=== PATIENT | male | born 1980 | race Caucasian/White ===

== ENCOUNTER 2018-10-21 19:12 | Emergency (ER) | payer OTHER ==
[~2018-10-21] VITALS: Ht 175.3 cm; Wt 50.0 kg
[~2018-10-21 19:12] MED LIST: ARIP2 PO; LIDO700A18 TD
[2018-10-21 19:13] VITALS: BP 122/78
[2018-10-21] MEDS ORDERED: TRAZ-220 PO (19:50)
[2018-10-21] MEDS ORDERED: CHLO50 PO (19:50)
== END 2018-10-21 22:11 | disposition left against medical advice (07) ==
LOC: EMS 19:12
DX: R20.2 Paresthesia of skin (principal); F41.9 Anxiety disorder, unspecified; F32.9 Major depressive disorder, single episode, unspecified; F20.9 Schizophrenia, unspecified; G89.29 Other chronic pain; F17.210 Nicotine dependence, cigarettes, uncomplicated; Z53.21 Procedure and treatment not carried out due to patient leaving prior to being seen by health care provider

== ENCOUNTER 2020-03-26 18:05 | Inpatient (IN) | payer MEDICAID, OTHER ==
[~2020-03-26] VITALS: Ht 177.8 cm; Wt 75.0 kg
[~2020-03-26 18:05] MED LIST changes: -ARIP2 PO; +CHLO50TA41 PO; -LIDO700A18 TD; +TRAZ-257 PO
[2020-03-26] MEDS ORDERED: PERTUSS(ACELL),DIPH,TET VAC/PF 0.5 ML VIAL IM ONE (19:00)
[2020-03-26] MEDS ORDERED: BACITRACIN 0.9 GM PACKET OINTMENT TP ONE (19:00)
[2020-03-26] MEDS ORDERED: LIDOCAINE 1% 10 ML VIAL INJ ONE (19:00)
[2020-03-26] MEDS ORDERED: DiphenhydrAMINE HCL 50 MG/ML VIAL ONE (19:05)
[2020-03-26] MEDS ORDERED: LORazepam 2 MG/ML VIAL ONE (19:05)
[2020-03-26] MEDS ORDERED: HALOPERIDOL LACTATE 5 MG/ML VIAL ONE (19:05)
[2020-03-26] MEDS ORDERED: LORazepam 2 MG/ML VIAL IM ONE (19:15)
[2020-03-26] MEDS ORDERED: DiphenhydrAMINE HCL 50 MG/ML VIAL IM ONE (19:15)
[2020-03-26] MEDS ORDERED: HALOPERIDOL LACTATE 5 MG/ML VIAL IM ONE (19:15)
[2020-03-26 19:42] LABS: BASOPHILS % (AUTO) 0.7 % (0.0-2.0); EOSINOPHILS % (AUTO) 1.2 % (1.0-6.0); HEMATOCRIT 38.9 % (41-53); LYMPHOCYTES # (AUTO) 3.1 K/uL (1.0-4.8); LYMPHOCYTES % (AUTO) 48.2 % (22.0-44.0); MEAN CORPUSCULAR HEMOGLOBIN 33.5 pg (26.0-34.0); MEAN CORPUSCULAR HGB CONC 33.4 G/dL (31.0-37.0); MEAN CORPUSCULAR VOLUME 100 fL (80-100); MONOCYTES # (AUTO) 0.5 K/uL (0.1-1.0); MONOCYTES % (AUTO) 7.5 % (2.0-9.0); NEUTROPHILS # (AUTO) 2.7 K/uL (1.8-7.7); NEUTROPHILS % (AUTO) 42.4 % (40.0-70.0); PLATELET COUNT (AUTO) 194 K/uL (150-450); RED BLOOD CELL COUNT(AUTO) 3.88 MIL/uL (4.50-5.90); RED CELL DISTRIBUTION WIDTH 13.1 % (11.5-14.5)
[2020-03-26 19:53] LABS: ANION GAP 14 mmol/L (8-16); CALCIUM, TOTAL 8.8 mg/dL (8.8-10.5); CARBON DIOXIDE 23 mmol/L (22-29); CHLORIDE 107 mmol/L (98-107); CREATININE 0.71 mg/dL (0.60-1.30); GLOMERULAR FILTR. RATE CALC > 60 mL/min (>60); GLUCOSE,RANDOM 88 mg/dL (70-110); SODIUM SERUM 144 mmol/L (136-145); UREA NITROGEN, BLOOD 7 mg/dL (7-18)
[2020-03-26 19:59] LABS: ALANINE AMINOTRANSFERASE 20 U/L (12-78); ALKALINE PHOSPHATASE 85 U/L (46-116); ASPARTATE AMINOTRANSFERASE 22 U/L (15-37); BILIRUBIN,TOTAL 0.4 mg/dL (0.1-1.0); TOTAL PROTEIN, SERUM 7.3 g/dL (6.4-8.2)
[2020-03-26] MEDS ORDERED: POTASSIUM CHLORIDE 10% 40 MEQ/30 ML LIQUID UDCUP PO ONE (21:00)
[2020-03-27] MEDS ORDERED: NICOTINE 14 MG/24 HOUR PATCH TD PRN (00:15)
[2020-03-27] MEDS ORDERED: MAGNESIUM HYDROXIDE SUSPENSION 30 ML UDCUP PO PRN (00:15)
[2020-03-27] MEDS ORDERED: DOCUSATE SODIUM 100 MG CAPSULE PO PRN (00:15)
[2020-03-27] MEDS ORDERED: ALBUTEROL SULFATE HFA 90 MCG/PUFF 8 GM INHALER IH PRN (00:15)
[2020-03-27] MEDS ORDERED: MAG HYDROX/AL HYDROX/SIMETH ES 30 ML SUSPENSION UDCUP PO PRN (00:15)
[2020-03-27] MEDS ORDERED: ACETAMINOPHEN 325 MG TABLET PO PRN (00:15)
[2020-03-27] MEDS ORDERED: LOPERAMIDE HCL 2 MG CAPSULE PO PRN (00:15)
[2020-03-27] MEDS ORDERED: GuaiFENesin/D-METHORPHAN [SUGAR-FREE] 200-20MG/10 ML SYRUP UDCUP PO PRN (00:15)
[2020-03-27] MEDS ORDERED: IBUPROFEN 400 MG TABLET PO PRN (00:15)
[2020-03-27] MEDS ORDERED: CloNIDine HCL 0.1 MG TABLET PO PRN (00:15)
[2020-03-27] MEDS ORDERED: ONDANSETRON HCL 4 MG TABLET PO PRN (00:15)
[2020-03-27] MEDS ORDERED: PETROLATUM,WHITE 28 GM JELLY TP PRN (00:15)
[2020-03-27 05:44] VITALS: BP 112/70
[2020-03-27 06:19] VITALS: BP 102/55
[2020-03-27 16:35] VITALS: BP 109/72
[2020-03-27] MEDS: ChlorproMAZINE HCL 50 MG TABLET PO SCH (16:50)
[2020-03-27] MEDS: TraZODone HCL 50 MG TABLET PO SCH (20:44)
[2020-03-27 21:10] VITALS: BP 109/72
[2020-03-28 05:30] VITALS: BP 105/35
[2020-03-28 05:32] VITALS: BP 105/35
[2020-03-28 08:23] VITALS: BP 127/73
[2020-03-28] MEDS: ChlorproMAZINE HCL 50 MG TABLET PO SCH ×3 (08:24→16:42)
[2020-03-28 16:22] VITALS: BP 126/78
[2020-03-28] MEDS ORDERED: HALOPERIDOL 5 MG TABLET PO PRN (18:45)
[2020-03-28] MEDS ORDERED: ZOLPIDEM TARTRATE 10 MG TABLET PO PRN (18:45)
[2020-03-28] MEDS: LORazepam 2 MG TABLET PO PRN (20:20)
[2020-03-28] MEDS: TraZODone HCL 50 MG TABLET PO SCH (20:20)
[2020-03-29 04:23] VITALS: BP 128/60
[2020-03-29] MEDS: ChlorproMAZINE HCL 50 MG TABLET PO SCH ×3 (08:10→16:39)
[2020-03-29] MEDS ORDERED: TRAZ-252 PO (14:54)
[2020-03-29 16:00] VITALS: BP 128/78
[2020-03-29] MEDS: TraZODone HCL 50 MG TABLET PO SCH (20:50)
[2020-03-29] MEDS: LORazepam 2 MG TABLET PO PRN (20:50)
[2020-03-30 05:18] VITALS: BP 124/68
[2020-03-30 08:21] VITALS: BP 117/64
[2020-03-30] MEDS: ChlorproMAZINE HCL 50 MG TABLET PO SCH ×2 (08:49→12:30)
== END 2020-03-30 13:00 | disposition home or self-care (01) | DRG 750 ==
LOC: EMS 18:05 → B3A 21:00
PROVIDERS: ADMIT Psychiatry & Neurology Child & Adolescent Psychiatry
PROC: 0HQDXZZ Repair Right Lower Arm Skin, External Approach (ICD-10-PCS; principal; 2020-03-26)
DX: F20.0 Paranoid schizophrenia (principal); Z59.0 Homelessness; D64.9 Anemia, unspecified; E87.6 Hypokalemia; F10.10 Alcohol abuse, uncomplicated; S51.811A Laceration without foreign body of right forearm, initial encounter; F17.210 Nicotine dependence, cigarettes, uncomplicated; F19.10 Other psychoactive substance abuse, uncomplicated; F32.9 Major depressive disorder, single episode, unspecified; F41.9 Anxiety disorder, unspecified; G89.29 Other chronic pain; M54.9 Dorsalgia, unspecified; R41.82 Altered mental status, unspecified; Z79.899 Other long term (current) drug therapy; X58.XXXA Exposure to other specified factors, initial encounter; Y93.89 Activity, other specified; Y92.89 Other specified places as the place of occurrence of the external cause; Y99.8 Other external cause status
CPT/HCPCS: 90715; 99291; G0480; J1200; J1630; J2060; J3490

== ENCOUNTER → 2025-07-25 | Emergency (ER) | payer MEDICAID ==
[~2025-07-25] VITALS: Ht 175.3 cm; Wt 50.0 kg
[~2025-07-25] MED LIST changes: -CHLO50TA41 PO; +CHLO50TA71 PO; +TRAZ-252 PO; -TRAZ-257 PO
[2025-07-25 17:21] VITALS: TEMP 98.6
[2025-07-25 17:50] LABS: COVID AG,FIA SOURCE NASAL SWAB
[2025-07-25 17:56] LABS: APPEARANCE,URINE CLEAR (CLEAR); GLUCOSE, URINE (UA) NEGATIVE (NEGATIVE); LEUKOCYTE ESTERASE ,URINE NEGATIVE (NEGATIVE); NITRATE,URINE NEGATIVE (NEGATIVE); OCCULT BLOOD,URINE NEGATIVE (NEGATIVE); PH,URINE DRUG SCREEN 6.5 (5.0-8.0); SPECIFIC GRAVITIY, URINE 1.002 (1.003-1.030)
[2025-07-25 18:02] LABS: ALCOHOL, URINE DRUG SCREEN NEGATIVE (NEGATIVE); AMPHET/METH SCREEN,URINE NEGATIVE (NEGATIVE); BARBITURATE SCREEN, URINE NEGATIVE (NEGATIVE); CANNABINOID SCREEN,URINE POSITIVE (NEGATIVE); COCAINE SCREEN,URINE NEGATIVE (NEGATIVE); METHADONE SCREEN, URINE NEGATIVE (NEGATIVE)
[2025-07-25 18:03] LABS: PLATELET COUNT (AUTO) 251 K/uL (150-450); RED BLOOD CELL COUNT(AUTO) 3.89 MIL/uL (4.50-5.90); RED CELL DISTRIBUTION WIDTH 13.3 % (11.5-14.5); WHITE BLOOD COUNT (AUTO) 6.3 K/uL (4.5-11.0)
[2025-07-25 18:10] LABS: CALCIUM, TOTAL 8.7 mg/dL (8.8-10.5); CREATININE 0.56 mg/dL (0.60-1.30); GLOMERULAR FILTR. RATE CALC > 60 mL/min (>60); GLUCOSE,RANDOM 94 mg/dL (70-110); SODIUM SERUM 145 mmol/L (136-145); UREA NITROGEN, BLOOD 9 mg/dL (7-18)
[2025-07-25 18:35] LABS: SARS-COV2 (COVID) ANTIGEN,FIA Negative (Negative)
[2025-07-25 20:10] VITALS: BP 109/77; PULSE 69; RESP 15; O2SAT 99
== END | disposition still patient (30) ==
LOC: EMS 16:35
DX: F20.9 Schizophrenia, unspecified (principal); F10.129 Alcohol abuse with intoxication, unspecified; F41.9 Anxiety disorder, unspecified; F32.A Depression, unspecified; G89.29 Other chronic pain; F17.210 Nicotine dependence, cigarettes, uncomplicated; Z20.822 Contact with and (suspected) exposure to COVID-19; Z98.890 Other specified postprocedural states; Z79.899 Other long term (current) drug therapy; Y90.7 Blood alcohol level of 200-239 mg/100 ml
CPT/HCPCS: 99284; 87426; 80048; 85025; 36415; 80307; 81003; G0480